=== PATIENT | female | born 2005 | race African-American/Black ===

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

== ENCOUNTER 2024-11-02 09:27 | Day surgery (SDC) | payer MEDICAID ==
[2024-10-30 09:48] LABS: Basophils # (auto) 0 10 ^3/uL (0-0.2); Basophils % (auto) 0.6 % (0.0-2.0); Eosinophils # (auto) 0.1 10 ^3/uL (0-0.8); Eosinophils % (auto) 2.2 % (0.0-7.0); Hematocrit 40.2 % (36.0-46.0); Hemoglobin 13.3 g/dL (12.2-16.2); Lymphocytes # (auto) 2.1 10 ^3/uL (0.4-5.4); Lymphocytes % (auto) 49.3 % (10.0-50.0); Mean Corpuscular Hemoglobin 30.7 pg (28.0-32.0); Mean Corpuscular Hgb Conc. 33.2 g/dL (32.0-36.0); Mean Corpuscular Volume 92.5 fL (80.0-100.0); Monocytes # (auto) 0.3 10 ^3/uL (0-1.3); Monocytes % (auto) 6.4 % (0.0-12.0); Neutrophils # (auto) 1.8 10 ^3/uL (1.6-8.6); Neutrophils % (auto) 41.5 % (37.0-80.0); Platelet Count (auto) 225 10^3/uL (140-450); Red Blood Cells 4.34 10^6/uL (4.0-5.20); Red Cell Distribution Width 13.7 % (11.8-14.3); White Blood Cell 4.3 10^3/uL (4.4-10.8)
[2024-10-30 09:53] LABS: Urine Bacteria FEW /hpf (None Seen); Urine Blood Negative /uL (Negative); Urine Clarity Clear (Clear); Urine Color Light-Yellow (Yellow); Urine Mucus FEW (None Seen); Urine Protein, UAD Negative (Negative); Urine Specific Gravity 1.022 (1.001-1.035); Urine Squamous Epithelial Cell FEW /hpf (<5); Urine Urobilinogen Normal (Negative); Urine WBC 1 /HPF (0-5); Urine pH 5.5 (5.0-9.0)
[2024-10-30 10:02] LABS: INR 1.06 (0.9-1.15); Prothrombin Time 11.2 sec (9.3-11.8)
[2024-10-30 10:19] LABS: Alanine Aminotransferase 14 U/L (7-40); Alkaline Phosphatase 51 U/L (46-116); Anion Gap 8 (5-15); BUN/Creatinine Ratio 15.3 (10.0-20.0); Blood Urea Nitrogen 13 mg/dL (9-23); Calcium 9.7 mg/dL (8.7-10.4); Carbon Dioxide 25 mmol/L (20-31); Chloride 105 mmol/L (98-107); Glucose 91 mg/dL (74-106); Sodium 138 mmol/L (136-145)
[2024-10-30 10:21] LABS: Albumin 4.8 g/dL (3.2-4.8); Bilirubin, Total 0.5 mg/dL (0.2-1.0)
[2024-10-30 10:22] LABS: Total Protein 7.5 g/dL (5.7-8.2)
[2024-10-30 10:25] LABS: Aspartate Aminotransferase 13 U/L (13-40); Potassium 3.5 mmol/L (3.5-5.1)
[~2024-11-02] VITALS: Ht 160 cm; Wt 44.0 kg
[~2024-11-02 09:27] MED LIST: ALBUAER3 IN; CETI10TA2 PO; FER325T PO; FLUT50SP
[2024-11-02] MEDS ORDERED: fentaNYL CITRATE 100 MCG/2 ML VL ONE (11:36)
[2024-11-02] MEDS ORDERED: PROPOFOL 10 MG/ML 20 ML IV ONE (11:36)
[2024-11-02 11:56] VITALS: TEMP 98.1; O2SAT 97
--- NOTE | 2024-11-02 11:58 | DVHHP2 ---
GI H&P Pre-Op Assessment Date: 11/02/24 Chief complaint: nausea, abdominal pain HPI: per clinic note Past medical history: per clinic note Past surgical history: per clinic note Family history: per clinic note Physical exam: General: NAD, AAOX3 HEENT: PERRL, no scleral icterus, normal hearing, gums without lesions or bleeding, oropharynx clear without erythema or exudate. Neck: Supple without enlargement of the thyroid, or lymphadenopathy. Chest: Normal size and shape, no tenderness, lung huerta clear to auscultation and percussion, nonlabored breathing. Heart: RRR, no murmur Abdomen: non-distended, no tenderness to palpation, +BS, no hepatosplenomegaly Extremities: no edema Neurological: CN II-XII intact, sensation intact in all extremities, 5+ strength in all extremities Skin: No rashes, No jaundice Assessment: -nausea, abdominal pain Plan: - EGD - Colonoscopy - Risks (bleeding, infection, perforation, reaction to sedation medications and cardiopulmonary arrest) and benefit of the procedure were explained to patient. Patient agrees to undergo the procedure. HIEU IRVING MD Nov 02, 2024 11:58
--- NOTE | 2024-11-02 11:59 | DVHOP2 ---
Operative Report DATE OF OPERATION: 11/02/24 PROCEDURE: Upper Endoscopy. PREOPERATIVE INDICATION: The patient is a 19 -year-old female undergoing endoscopy for nausea and abdominal pain. POSTOPERATIVE DIAGNOSES: 1. Mild gastritis PROCEDURE PERFORMED BY: Magan Larios SCOPE: Olympus videoendoscope. ASA CLASS: 3 PREOPERATIVE MEDICATIONS: MAC with Dr Dominguez PROCEDURE IN DETAIL: After obtaining an informed consent, the patient was placed on left lateral decubitus position. The patient was then sedated with the above medications. A bite block was placed between her teeth. The endoscope was then passed through the oropharynx, into the esophagus, and through the stomach and pylorus up to the second and third part of the duodenum. The duodenum was normal in appearance. There was mild gastritis. Gastric biopsies were obtained. The GEJ was normal in appearance at 34 cm. The esophagus was normal in appearance. The endoscope was then withdrawn. The patient tolerated the procedure well without difficulty. COMPLICATIONS : None SPECIMENS: Gastric biopsies DISPOSITION: D/C to home PLAN: 1. Await for biopsy result MAGAN LARIOS MD Nov 02, 2024 11:59
--- NOTE | 2024-11-02 12:01 | DVHOP2 ---
Operative Report DATE OF OPERATION: 11/02/24 PROCEDURE: Colonoscopy. PREOPERATIVE INDICATION: The patient is a 19 -year-old female undergoing colonoscopy for abdominal pain. POSTOPERATIVE DIAGNOSES: 1. 4 mm polyp in the right colon was removed with hot snare and retrieved. PROCEDURE PERFORMED BY: Magan Larios M.D. SCOPE: Olympus videocolonoscope. ASA CLASS: 3 PREOPERATIVE MEDICATIONS: MAC with Dr Dominguez PROCEDURE IN DETAIL: After obtaining an informed consent, the patient was placed on left lateral decubitus position. She was then sedated with the above medications. A rectal examination was performed that was normal. The colonoscope was then passed through the anus into the rectosigmoid and through the descending, transverse, and ascending colon up to the cecum with visualization of the appendiceal orifice, base of the cecum and the ileocecal valve. A 4 mm polyp in the right colon was removed with hot snare and retrieved. The colonoscope was then withdrawn. The patient tolerated the procedure well without difficulty. WITHDRAWAL TIME: 6 minutes QUALITY OF THE PREP: Norco Bowel Prep score: 7 COMPLICATIONS : None SPECIMENS: Colon polyp DISPOSITION: D/C to home PLAN: 1. Repeat colonoscopy base on biopsy result MAGAN LARIOS MD Nov 02, 2024 12:01
--- NOTE | 2024-11-02 12:02 | DVHDS2 ---
Physician Discharge Progress N Final Diagnosis: gastritis, colon polyp Operations or Procedures: Operations or Procedures EGD with biopsy colonoscopy with snare polypectomy Condition on Discharge: Good Disposition: Home Discharge Instructions: Diet: Regular Activity: No Restrictions, As Tolerated Medications: resume previous home medications Follow Up Care: Discharge Statement: "Patient was advised to return to the ER or call 911 if any headaches, dizziness, shortness of breath, chest pain, abdominal pain, bleeding, fevers, or worsening of medical condition. Patient was counseled about treatment plan, medications, possible side effects, patientverbalized understanding. All questions were answered to the best of my ability. This discharge took greater then 30 minutes in planning, reviewing documentation, counseling the patient, and discussing with other team members." HIEU IRVING MD Nov 02, 2024 12:02
[2024-11-02 12:40] VITALS: BP 106/64; PULSE 58; RESP 14; O2SAT 100
== END 2024-11-02 12:52 | disposition home or self-care (01) ==
LOC: GI 09:27
PROVIDERS: ATTEND Internal Medicine Gastroenterology
DX: R10.9 Unspecified abdominal pain (principal); K29.50 Unspecified chronic gastritis without bleeding; R11.0 Nausea; D12.2 Benign neoplasm of ascending colon; Z90.49 Acquired absence of other specified parts of digestive tract
CPT/HCPCS: 36415; 43239; 45385; 80053; 81001; 84702; 85025; 85610; 85730; 88305; 88312; 88342; J2704; J3010; J7030

== ENCOUNTER 2025-07-29 16:49 | Emergency (ER) | payer MEDICAID ==
[~2025-07-29] VITALS: Ht 160 cm; Wt 46.6 kg
--- NOTE | 2025-07-29 16:55 | ECG ---
[facility] Test Date: 2025-07-29 Test Time: 16:54:12 Pat Name: EMIR JOHN Department: Room: Gender: F Pharmacist Helper: JACY : 2005 Requested By: ASTON CURRY Order Number: [id number] Reading MD: Tonio Ruiz Measurements Intervals [place] Rate: 50 P: 54 HI: 138 QRS: 86 QRSD: 89 T: 43 QT: 414 QTc: 378 Interpretive Statements Sinus rhythm Electronically Signed On 07-30-2025 15:17:23 PDT by Tonio Ruiz Please click the below link to view image of tracing.
[2025-07-29 17:22] LABS: Chloride 104 mmol/L (98-107); Sodium 139 mmol/L (136-145)
[2025-07-29 17:23] LABS: Anion Gap 10 (5-15); Carbon Dioxide 25 mmol/L (20-31)
[2025-07-29 17:24] LABS: Calcium 9.2 mg/dL (8.7-10.4)
[2025-07-29 17:29] LABS: BUN/Creatinine Ratio 9.3 (10.0-20.0); Blood Urea Nitrogen 8 mg/dL (9-23); Glucose 87 mg/dL (74-106); Potassium 3.4 mmol/L (3.5-5.1)
[2025-07-29] MEDS ORDERED: NAPR-957 PO (18:59)
--- NOTE | 2025-07-29 18:59 | ED.PDOC ---
HPI Comments 20-year-old female presented to the emergency department complaining of chest pain duration two years on and off in August she will have a stress test Chief Complaint: Chest Pain Time Seen by MD: 17:24 Reviewed Notes: Nurses Notes, Medications, Allergies Allergies: Coded Allergies: NO KNOWN ALLERGIES (Unverified , 08/29/19) Home Meds Active Scripts Naproxen (Naproxen) 375 Mg Tab, 375 MG PO TID for 10 Days, #30 TAB Prov:GAYLE FERRARO MD 07/29/25 Reported Medications Fluticasone Propionate (Nasal) (Fluticasone Propionate) 50 Mcg/Act Spr, 50 MCG NA, SPR 10/30/24 Albuterol Sulfate (VENTOLIN MDI) 90 Mcg Ih, 90 MCG IN PRN, INH 10/30/24 Ferrous Sulfate (FERROUS SULFATE) Unknown Strength Tb, PO DAILY, TAB 10/30/24 Cetirizine Hcl (Kls Aller-Charla) 10 Mg Tab, 10 MG PO DAILY, TAB 10/30/24 Information Source: Patient Mode of Arrival: Ambulatory Severity: Mild Timing: Months, Came on: Gradually Duration: Intermittent Location: Chest (L) Radiation: No Radiation Quality: Stabbing, Aching Onset: At Rest Cardiac Risk Factors: None PE Risk Factors: None History of: Similar pain in past, None Modifying Factors: Movement, Position Change Associated Signs and Symptoms: None Past Medical History PAST MEDICAL HISTORY: Asthma Surgical History: Denies all surgeries [employer] History: No Pertinent [employer]CH[employer] History Family History Family History: Unknown Social History Smoker: Non-Smoker Alcohol: Denies ETOH Use Drugs: Denies Drug Use Lives In: Home Constitutional: denies: chills, diaphoresis, fatigue, fever, malaise, sweats, weakness, others EENTM: denies: blurred vision, double vision, ear bleeding, ear discharge, ear drainage, ear pain, ear ringing, eye pain, eye redness, hearing loss, mouth pain, mouth swelling, nasal discharge, nose bleeding, nose congestion, nose pain, photophobia, tearing, throat pain, throat swelling, voice changes, others Respiratory: denies: cough, hemoptysis, orthopnea, SOB at rest, shortness of breath, SOB with excertion, stridor, wheezing, others Cardiovascular: reports: chest pain; denies: dizzy spells, diaphoresis, Dyspnea on exertion, edema, irregular heart beat, left arm pain, lightheadedness, palpitations, PND, syncope, others Gastrointestinal: denies: abdomen distended, abdominal pain, blood streaked bowels, constipated, diarrhea, dysphagia, difficulty swallowing, hematemesis, melena, nausea, poor appetite, poor fluid intake, rectal bleeding, rectal pain, vomiting, others Genitourinary: denies: abnormal vagina bleeding, burning, dyspareunia, dysuria, flank pain, frequency, hematuria, incontinence, pain, , vagina discharge, urgency, others Neurological: denies: dizziness, fainting, headache, left sided numbness, left sided weakness, numbness, paresthesia, pre-existing deficit, right sided numbness, right sided weakness, seizure, speech problems, tingling, tremors, weakness, others Musculoskeletal: denies: back pain, gout, joint pain, joint swelling, muscle pain, muscle stiffness, neck pain, others Integumetry: denies: bruises, change in color, change in hair/nails, dryness, laceration, lesions, lumps, rash, wounds, others Allergic/Immunocompromised: denies: Difficulty Healing, Frequent Infections, Hives, Itching, others Hematologic/Lymphatic: denies: anemia, blood clots, easy bleeding, easy bruising, swollen glands, others Endocrine: denies: excessive hunger, excessive sweating, excessive thirst, excessive urination, flushing, intolerance to cold, intolerance to heat, unexplained weight gain, unexplained weight loss, others Psychiatric: denies: anxiety, bipolar disorder, depression, hopeless, panic disorder, schizophrenia, sleepless, suicidal, others All Other Systems: Reviewed and Negative Physical Exam General Appearance: No Apparent Distress, Thin HEENT: Normal ENT Inspection, PERRL/EOMI Neck: Full Range of Motion, Non-Tender, Normal, Normal Inspection Respiratory: Chest Non-Tender, Lungs Clear, No Accessory Muscle Use, No Respiratory Distress, Normal Breath Sounds, Other (Left chest wall tender to pressure) Cardiovascular: No Edema, No JVD, No Murmur, No Gallop, Normal Peripheral Pulses, Regular Rate/Rhythm Breast Exam: Deferred Gastrointestinal: No Organomegaly, Non Tender, No Pulsatile Mass, Normal Bowel Sounds, Soft Genitalia: Deferred Pelvic: Deferred Rectal: Deferred Extremities: No calf tenderness, Normal capillary refill, Normal inspection, Normal range of motion, Non-tender, No pedal edema Neurologic: Alert, bag presser II-XII nml as Tested, No Motor Deficits, Normal Affect, Normal Mood, No Sensory Deficits Cerebellar Function: Normal Reflexes: Normal Skin: Dry, Normal Color, Warm Peripheral Pulses: 1+ carotid (R), 1+ carotid (L) Lymphatic: No Adenopathy EKG EKG : Pulse Rate (adult): 50 [place]: Normal Cardiac Rhythm: NSR Was a procedure done? Was a procedure done?: No CP Differential Dx Differential Diagnosis: N/A Differential Diagnosis: N/A Differential Diagnosis: Chest Wall Pain, Costochondritis, Esophageal reflux/spasm X-Ray, Labs, Meds, VS Vital Signs Date Time Temp Pulse Resp B/P (MAP) Pulse Ox O2 Delivery O2 Flow Rate FiO2 07/29/25 19:00 98.3 60 12 99/71 (80) 100 98.3 07/29/25 19:00 60 12 100 Room Air* 0 21 07/29/25 18:59 50 07/29/25 16:54 50 07/29/25 16:53 98.4 54 16 111/58 97 98.4 Lab Test 07/29/25 17:59 07/29/25 16:59 Range/Units Troponin I High Sensitivity < 3 L < 3 L </=34 ng/L Sodium Level 139 136-145 mmol/L Potassium Level 3.4 L 3.5-5.1 mmol/L Chloride Level 104 98-107 mmol/L Carbon Dioxide Level 25 20-31 mmol/L Anion Gap 10 5-15 Blood Urea Nitrogen 8 L 9-23 mg/dL Creatinine 0.86 0.550-1.02 mg/dL Glomerular Filtration Rate Calc 98 >90 mL/min BUN/Creatinine Ratio 9.3 L 10.0-20.0 Serum Glucose 87 74-106 mg/dL Calcium Level 9.2 8.7-10.4 mg/dL X-Ray, Labs, Meds, VS Comment Course in the emergency department EKG is shows normal sinus rhythm at 50 Troponin three and three bmp negative treatment patient reassured he will be discharged home to take Motrin and follow up with the PCP Time of 1ST Reevaluation: 17:24 Reevaluation 1ST: Unchanged Time of 2ND Reevaluation: 19:00 Reevaluation 2ND: Improved Consultation: PCP Patient Education/Counseling: Diagnosis, Treatment, Prognosis, Need For Follow Up Family Education/Counseling: Diagnosis, Treatment, Prognosis, Need For Follow Up, No Family Present SEPSIS Sepsis Screen Date sepsis recognized/suspect: Jul 29, 2025 Time Sepsis recognized/suspect: 1652 Recent Procedure: No On Antibiotic Therapy: No Respiratory Rate >20: No Heart Rate >90: No Temp<36 C (96.8 F) or >38.3 C: No SBP <90 or MAP <65 mmHG: No New Acute Mental Status Change: No Is the patient on CPAP, BIPAP,: No Physician Orders Electrocardigram (07/29/25 17:52) Vital Signs Date Time Temp Pulse Resp B/P (MAP) Pulse Ox O2 Delivery O2 Flow Rate FiO2 07/29/25 19:00 98.3 60 12 99/71 (80) 100 98.3 07/29/25 19:00 60 12 100 Room Air* 0 21 07/29/25 18:59 50 07/29/25 16:54 50 07/29/25 16:53 98.4 54 16 111/58 97 98.4 Departure 1 Departure Time of Disposition: 18:58 Impression: Primary Impression: Musculoskeletal chest pain Disposition: HOME / SELF CARE / HOMELESS Condition: Fair Additional Instructions: Use local heat and follow up with your PCP e-Prescriptions Naproxen (Naproxen) 375 Mg Tab 375 MG PO TID for 10 Days, #30 TAB Prov: GAYLE FERRARO MD 07/29/25 Discharged With: Self Critical Care Note Critical Care Time?: No Stability Stability form required: No Heart Score Heart Score: Heart Score Response (Comments) Value History N/A 0 EKG Normal 0 Age <45 0 Risk Factors No known risk factors 0 Troponin Normal limit 0 Total 0 GAYLE FERRARO MD Jul 29, 2025 18:59
[2025-07-29 19:00] VITALS: BP 99/71; PULSE 60; RESP 12; TEMP 98.3; O2SAT 100
== END 2025-07-29 19:09 | disposition home or self-care (01) ==
LOC: ER 16:49
DX: R07.89 Other chest pain (principal); J45.909 Unspecified asthma, uncomplicated; Z79.899 Other long term (current) drug therapy; Z79.1 Long term (current) use of non-steroidal anti-inflammatories (NSAID)
CPT/HCPCS: 36415; 80048; 84484; 93005